=== PATIENT | female | born 1980 | race Caucasian/White ===

== ENCOUNTER 2016-07-20 10:52 | Emergency (ER) | payer MEDICAID ==
[2016-07-20] MEDS ORDERED: OPTIRAY 350 100 ML VIAL HMH IV ONE (10:53)
[2016-07-20] MEDS ORDERED: SODIUM CHLORIDE 0.9% 1,000 ML ONE (12:45)
[2016-07-20] MEDS ORDERED: ONDANSETRON 4 MG VIAL ONE (12:45)
== END 2016-07-20 15:33 | disposition home or self-care (01) ==
LOC: ER 10:52
DX: K42.9 Umbilical hernia without obstruction or gangrene (principal)
CPT/HCPCS: 36415; 74177; 80053; 81001; 83690; 84703; 85025; 87088; 96361; 96374